=== PATIENT | female | born 1945 | race Caucasian/White ===

== ENCOUNTER 2016-04-10 08:48 | Day surgery (SDC) | payer OTHER ==
[2016-04-02 13:54] VITALS: BMI 60.0
--- NOTE | 2016-04-09 07:12 | HISTORY & PHYSICAL EXAMINATION ---
DATE OF ADMISSION: 04/10/2016 CHIEF COMPLAINT: Left carpal tunnel syndrome. HISTORY OF PRESENT ILLNESS: Santa is a pleasant 70-year-old female who has been dealing with chronic paresthesias in her left hand. EMG study shows a carpal tunnel syndrome in the left wrist. After failing conservative treatment including injections, she has elected to proceed with an open left carpal tunnel release. PAST MEDICAL HISTORY: Significant for heart palpitations, anxiety, arthritis, morbid obesity, and hypothyroidism. MEDICATIONS: Include Synthroid 100 mcg daily, Xanax 1 mg 3 times a day, Zofran 4 mg every 8 hours for nausea, Neurontin 600 mg 3 times a day, Percocet 10/325 as needed, lamotrigine 200 mg twice a day, bunamidine 0.5 mg twice a day, baclofen 10 mg 3 times a day, and Lexapro 20 mg daily. ALLERGIES: PENICILLIN. FAMILY HISTORY: Noncontributory. SOCIAL HISTORY: She is , lives alone, has 2 children. She rarely drinks. She does little activity at this time and she is mostly wheelchair bound. PAST SURGICAL HISTORY: Significant for 2 rotator cuff repairs, right reverse total shoulder arthroplasty, surgery on her right ankle, stomach stapling and a right carpal tunnel release. REVIEW OF SYSTEMS: She complains of numbness in her left hand. All other pertinent review of systems are negative. PHYSICAL EXAMINATION: GENERAL: She is awake, alert and oriented x3. She is in no apparent distress. She is very pleasant. HEENT: Pupils are equal, round and reactive to light. Extraocular motion intact. Oral mucosa is pink and moist. HEART: Regular rate per radial pulse. LUNGS: Emelyn symmetrically bilaterally with no audible breath sounds. ABDOMEN: Soft, nontender, nondistended. MUSCULOSKELETAL: On physical examination of her left hand, she has full function of her hand. There are paresthesias along the median nerve distribution. She has positive Tinel sign and positive Phalen test. IMPRESSION: Carpal tunnel syndrome of the left wrist. PLAN: Will proceed with an open left carpal tunnel release. Postoperatively, she will be placed in a soft bandage and discharged to home.
[~2016-04-10] VITALS: Ht 157.5 cm; Wt 152.3 kg
[~2016-04-10 08:48] MED LIST: ACETAMINOPHEN 500 MG TAB PO SCH; ALPR-385 PO; APIX1TAB3 PO; BUME0.5T3 PO; CHOL100010 PO; CLINDAMYCIN 600 MG/54 ML D5W 54 ML IV SCH; DOCU1TAB6 PO; FAMOTIDINE 20 MG TAB PO SCH; GABA600T PO; LACTATED RINGER'S 1000ML IV SCH; LEVO100T PO; LRS10 PO; ONDA8TAB12 PO; OXYC-106 PO
--- NOTE | 2016-04-10 09:10 | History & Physical Bridge Note ---
H&P Re-Evaluation Bridge Note: I have examined the patient, reviewed the History & Physical and in the interval since the performance of the History & Physical I have noted the following changes of clinical significance: No changes noted
[2016-04-10 09:15] VITALS: BP 172/88; PULSE 86; TEMP 36.8; O2SAT 96; Ht 157.5 cm; Wt 152.3 kg
[2016-04-10] MEDS ORDERED: PROPOFOL IV EMULSION 10 MG/ML 20 ML VIAL IV ONE (11:08)
[2016-04-10] MEDS ORDERED: LIDOCAINE HCL 2% 2 ML VIAL (20MG/ML) ONE (11:08)
[2016-04-10] MEDS ORDERED: MIDAZOLAM HCL 1 MG/ML 2ML VIAL ONE ×2 (11:08→12:15)
[2016-04-10] MEDS ORDERED: FENTANYL CITRATE INJ 50 MCG/1 ML 2 ML VIAL ONE ×2 (11:08→13:18)
[2016-04-10] MEDS ORDERED: KETAMINE HCL INJ 50 MG/ML 10 ML VIAL ONE (12:15)
[2016-04-10] MEDS ORDERED: LABETALOL HCL IV 5 MG/ML 20ML ONE (12:32)
[2016-04-10] MEDS ORDERED: BUPIVACAINE/EPINEPHRINE 0.5% MPF 1:200,000 30 ML VIAL INJ ONE (12:34)
[2016-04-10] MEDS ORDERED: SODIUM CHLORIDE 0.9% 1000ML 1,000 ML IV SCH (12:46)
--- NOTE | 2016-04-10 12:46 | Discharge Instructions ---
Discharge Instructions Admission Reason for Admission: Left Wrist Carpal Tunnel Syndrome Discharge Discharge Diagnosis / Problem: SAME ABOVE Discharge Goals Goal(s): Decrease discomfort, Improve function Activity Recommendations Activity Limitations: as noted below Lifting Limitations: until after follow-up appointment Exercise/Sports Limitations: until after follow-up appointment Shower/Bathe: may shower/bathe in 3 days Driving or Machine Use: resume 1 day after discharge MEDICATIONS: * Resume previous medications unless instructed otherwise by your surgeon. * Always take pain medication on a full stomach or with food to avoid upset stomach. * Do not drink alcohol or drive while taking narcotics. * Ibuprofen or Tylenol may be taken if narcotic not needed. SPECIAL CARE INSTRUCTIONS: __ None _X_ Keep extremity elevated and iced x 48 hours; apply ice 20-30 minutes 8-10 times/day. May remove at night. __ Sling __24 hrs/day __ Remove at night __ Shoulder Immobilizer __ 24 hrs/day __ Remove at night _X_ Dressing __ Maintain until seen in office, may shower with plastic over site _X_ Remove dressings in 3-5 DAYS. MAY SHOWER SOONER IF COVERED WITH PLASTIC BAG. _X_ Cover incisions with band-aids after showering __ Do not remove steri-strips Call physician if chills or temperature rises above 102 degrees or pain unrelieved by prescribed pain medications at . . . Current Hospital Diet Patient's current hospital diet: Discharge Diet Recommended Diet: Regular Diet Fluid Restriction: None Procedures Procedures Performed: Left Carpal Tunnel Release Pending Studies Studies pending at discharge: no Work Instructions Return To Work: after follow-up Lifting Limitations: no more than 10 pounds Medical Emergencies . Who to Call and When: Medical Emergencies: If at any time you feel your situation is an emergency, please call 911 immediately. . Non-Emergent Contact Non-Emergency issues call your: Primary Care Provider Call Non-Emergent contact if: you have a fever, temperature is above 101.5 . "Provider Documentation" section prepared by Eric Beck. VTE Core Measure Inpt VTE Proph given/why not?: Treatment not indicated
--- NOTE | 2016-04-10 12:47 | [facility] Post Operative Brief Note ---
Immediate Operative Summary Operative Date Apr 10, 2016. Pre-Operative Diagnosis Carpal Tunnel Syndrome of the Left Wrist Post-Operative Diagnosis Same as preoperative Procedure(s) Performed Left Carpal Tunnel Release Surgeon Dr. Junior Rojas Lighting Equipment Operator Surgeon(s) TAN Dia Estimated Blood Loss 2ml Findings as above Specimens None per surgeon Disposition Recovery Room / PACU
[2016-04-10] MEDS ORDERED: OXYCODONE/ACETAMINOPHEN 5-325 TAB PO PRN ×2 (13:00)
[2016-04-10] MEDS ORDERED: ONDANSETRON INJ 2 MG/ML 2 ML VIAL IV PRN ×2 (13:00→13:15)
[2016-04-10] MEDS ORDERED: EpHEDrine SULFATE INJ 50 MG/ML AMP IV PRN (13:15)
[2016-04-10] MEDS ORDERED: LABETALOL HCL IV 5 MG/ML 20ML IV PRN (13:15)
[2016-04-10] MEDS ORDERED: NALOXONE HCL 0.4 MG/1 ML VIAL/CARP IV PRN (13:15)
[2016-04-10] MEDS ORDERED: PROMETHAZINE HCL INJ 12.5 MG in SODIUM CHLORIDE 0.9% 50ML 50 ML IV PRN (13:15)
[2016-04-10] MEDS ORDERED: FLUMAZENIL 0.1 MG/1 ML 10 ML VIAL IV PRN (13:15)
[2016-04-10] MEDS ORDERED: FENTANYL CITRATE INJ 50 MCG/1 ML 2 ML VIAL IV PRN (13:15)
[2016-04-10] MEDS ORDERED: ATROPINE SULFATE 0.1 MG/ML 5ML SYR IV PRN (13:15)
--- NOTE | 2016-04-10 13:30 | OPERATIVE REPORT ---
DATE OF OPERATION: 04/10/2016 PREOPERATIVE DIAGNOSIS: Carpal tunnel syndrome of the left wrist. POSTOPERATIVE DIAGNOSIS: Same. PROCEDURE: Open left carpal tunnel release. SURGEON: Dr. Junior Rojas. HYDRAULIC PILE HAMMER OPERATOR: Rio Beck PA-C, whose assistance was necessary for positioning of the hand and helping with instrumentation. ANESTHESIA: Local with sedation. COMPLICATIONS: None. CONDITION: Stable to PACU. INDICATIONS: Santa is a pleasant 70-year-old female who has been complaining of paresthesias in the median nerve distribution of her left wrist. Clinical examination was diagnostic for carpal tunnel syndrome. After failing conservative treatment, she elected to undergo open carpal tunnel release. OPERATION AND FINDINGS: PROCEDURE: On 04/10/2016 she arrived at [facility] for the above procedure. She was seen in the preoperative holding area and the operative extremity was identified and signed. She was given a preoperative antibiotic and taken back to the operating room, laid on the table in supine position, given basic sedation. The left wrist was then prepped and draped in sterile fashion. Time-out was done and the patient and operative extremity was properly identified. A longitudinal incision was made directly over the transverse carpal ligament. Dissection was taken down through the fascia and the transverse carpal ligament was exposed. A sharp knife and tenotomy scissors were then used to do a complete resection of the transverse carpal ligament. Complete resection was checked both proximally and distally. The wound was then irrigated and closed with 4-0 nylon suture in a mattress fashion. She was placed in a soft dressing and taken to the postanesthesia care unit in stable condition. She tolerated the procedure well. I attest to the content of the Intraoperative Record and any orders documented therein. Any exceptio ns are noted below.
--- NOTE | 2016-04-10 13:34 | Anesthesiology Progress Note ---
Anesthesia Post Op Note Date & Time Apr 10, 2016 at 13:33 Vital Signs Pain Intensity: 5 Vital Signs Past 12 Hours Date Time Temp Pulse Resp B/P Pulse Ox O2 Delivery O2 Flow Rate FiO2 04/10/16 13:30 89 13 129/72 96 Room Air 04/10/16 13:20 95 18 125/81 94 Room Air 04/10/16 13:10 94 15 119/64 94 Room Air 04/10/16 13:00 91 16 143/89 92 Room Air 04/10/16 12:50 84 16 135/71 97 Mask 10 04/10/16 12:43 36.2 85 16 144/96 98 Mask 10 04/10/16 09:15 36.8 86 22 172/88 96 Room Air Notes Mental Status: alert / awake / arousable, participated in evaluation Pt Amnestic to Procedure: Yes Nausea / Vomiting: adequately controlled Pain: adequately controlled Airway Patency, RR, SpO2: stable & adequate BP & HR: stable & adequate Hydration State: stable & adequate Anesthetic Complications: no major complications apparent
[2016-04-10 14:02] VITALS: BP 138/63; PULSE 93; TEMP 36.3; O2SAT 94
[2016-04-10] MEDS ORDERED: OXYCODONE/ACETAMINOPHEN 5-325 TAB ONE (14:15)
[2016-04-10 14:30] VITALS: BP 125/63; PULSE 96; O2SAT 95
[2016-04-10 15:00] VITALS: BP 146/68; PULSE 94; O2SAT 95
== END 2016-04-10 15:15 | disposition home or self-care (01) ==
LOC: C.ACU 08:48
PROVIDERS: ATTEND Orthopaedic Surgery
DX: G56.02 Carpal tunnel syndrome, left upper limb (principal); Z99.3 Dependence on wheelchair; E03.9 Hypothyroidism, unspecified; M19.90 Unspecified osteoarthritis, unspecified site